=== PATIENT | male | born 1950 | race Caucasian/White ===

== ENCOUNTER 2024-11-07 14:19 | Inpatient (IN) | payer MEDICARE, BC ==
[2024-11-07] MEDS ORDERED: guaiFENesin/Dextromethorphan 100-10 MG/5 ML Soln 5 ML Cup PO PRN (16:31)
[2024-11-07] MEDS ORDERED: Ondansetron 4 MG/2 ML SDV IVPUSH PRN (16:31)
[2024-11-07] MEDS ORDERED: Bisacodyl 10 MG Supp RECTAL PRN (16:31)
[2024-11-07] MEDS ORDERED: Metoprolol Tartrate 5 MG/5 ML SDV IVPUSH PRN (16:31)
[2024-11-07] MEDS ORDERED: Sennosides/Docusate Sodium 50-8.6 MG Tab PO PRN (16:31)
[2024-11-07] MEDS ORDERED: Naloxone 2 MG/2 ML Syringe IVPUSH PRN (16:31)
[2024-11-07] MEDS ORDERED: Polyethylene Glycol 3350 Powder 17 GM Packet PO PRN (16:31)
[2024-11-07] MEDS ORDERED: Magnesium Hydroxide 400 MG/5 ML Susp 30 ML Cup PO PRN (16:31)
[2024-11-07] MEDS ORDERED: hydrALAZINE 20 MG/ML SDV IVPUSH PRN (16:31)
[2024-11-07] MEDS ORDERED: Lactulose Soln 10 GM/15 ML 946 ML Bottle RECTAL PRN (16:31)
[2024-11-07] MEDS: Menthol 10%/Methyl Salicylate 15% 85 GM Tube TOP PRN (18:14)
[2024-11-07] MEDS: Allopurinol 100 MG Tab PO SCH (20:58)
[2024-11-07] MEDS: Cefdinir 250 MG/5 ML Susp 100 ML Bottle PO SCH (20:59)
[2024-11-07] MEDS ORDERED: guaiFENesin 600 MG Tab.ER PO SCH (21:00)
[2024-11-07] MEDS ORDERED: Saccharomyces Boulardii (Probiotic) 250 MG Cap PO SCH (21:00)
[2024-11-08] MEDS: oxyCODONE 5 MG Tab PO PRN (02:02)
[2024-11-08] MEDS: Pantoprazole 40 MG Tab.CR PO SCH (05:13)
[2024-11-08 06:31] LABS: HEMATOCRIT 38.6 % (40.0-54.0); HEMOGLOBIN 12.2 g/dL (14.0-18.0); MEAN CORPUSCULAR HEMOGLOBIN 28.5 pg (27.0-34.0); MEAN CORPUSCULAR HGB CONC 31.6 g/dL (33.0-35.0); MEAN CORPUSCULAR VOLUME 90.2 fL (80-100); PLATELET COUNT,PLT 340 10^3/uL (150-450); RED BLOOD CELL COUNT 4.28 10^6/uL (4.6-6.2)
[2024-11-08 06:48] LABS: ANION GAP 11.9 mEq/L (7-13); CALCIUM 9.4 mg/dL (8.5-10.1); CREATININE 1.27 mg/dL (0.70-1.30); EST CRCL DRUG DOSING (CG) 47.71 mL/min; MAGNESIUM 2.2 mg/dL (1.8-2.4); POTASSIUM,K 3.9 mmol/L (3.5-5.1)
[2024-11-08 06:50] LABS: BASOPHILS PERCENT AUTO 0.3 % (0.0-1.0); EOSINOPHILS PERCENT AUTO 1.1 % (1.0-3.0); LYMPHOCYTES PERCENT AUTO 14.8 % (20.5-50.1); MONOCYTES PERCENT AUTO 12.1 % (2-8); NEUTROPHILS PERCENT AUTO 71.7 % (42.2-75.2)
[2024-11-08 07:36] LABS: LYMPHOCYTES PERCENT MAN 17 % (20-50); MONOCYTES PERCENT MAN 12 % (2-8); PLATELET COUNT ESTIMATE ADEQUATE; SEG NEUTROPHILS PERCENT MAN 71 % (42-75)
[2024-11-08] MEDS: Digoxin 125 MCG Tab PO SCH (09:51)
[2024-11-08] MEDS: Atenolol 50 MG Tab PO SCH (09:52)
[2024-11-08] MEDS: Rivaroxaban 10 MG Tab PO SCH (09:52)
[2024-11-08] MEDS: Furosemide 40 MG Tab PO SCH (09:52)
[2024-11-08] MEDS: Lisinopril 10 MG Tab PO SCH (09:53)
[2024-11-08] MEDS: Acetaminophen 325 MG Tab PO PRN (20:23)
[2024-11-09 06:47] LABS: ANION GAP 11.8 mEq/L (7-13); CALCIUM 9.3 mg/dL (8.5-10.1); CREATININE 1.26 mg/dL (0.70-1.30); EST CRCL DRUG DOSING (CG) 48.09 mL/min; POTASSIUM,K 3.8 mmol/L (3.5-5.1)
[2024-11-10] MEDS: Sodium Chloride 0.9% 10 ML Syringe FLUSH PRN ×2 (09:13→09:14)
[2024-11-13 06:24] LABS: BASOPHILS PERCENT AUTO 0.6 % (0.0-1.0); EOSINOPHILS PERCENT AUTO 0.8 % (1.0-3.0); HEMATOCRIT 35.9 % (40.0-54.0); HEMOGLOBIN 11.7 g/dL (14.0-18.0); LYMPHOCYTES PERCENT AUTO 11.6 % (20.5-50.1); MEAN CORPUSCULAR HEMOGLOBIN 29.5 pg (27.0-34.0); MEAN CORPUSCULAR HGB CONC 32.6 g/dL (33.0-35.0); MEAN CORPUSCULAR VOLUME 90.7 fL (80-100); MONOCYTES PERCENT AUTO 10.3 % (2-8); NEUTROPHILS PERCENT AUTO 76.7 % (42.2-75.2); PLATELET COUNT,PLT 341 10^3/uL (150-450); RED BLOOD CELL COUNT 3.96 10^6/uL (4.6-6.2); WHITE BLOOD CELL COUNT,WBC 10.9 10^3/uL (5.0-10.0)
[2024-11-13 06:42] LABS: ANION GAP 11.4 mEq/L (7-13); CALCIUM 9.8 mg/dL (8.5-10.1); CREATININE 1.51 mg/dL (0.70-1.30); EST CRCL DRUG DOSING (CG) 40.13 mL/min; POTASSIUM,K 4.4 mmol/L (3.5-5.1)
[2024-11-16 06:36] LABS: ANION GAP 14.4 mEq/L (7-13); CALCIUM 9.8 mg/dL (8.5-10.1); CREATININE 1.37 mg/dL (0.70-1.30); EST CRCL DRUG DOSING (CG) 44.23 mL/min; POTASSIUM,K 4.4 mmol/L (3.5-5.1)
[2024-11-17 06:35] LABS: ANION GAP 13.2 mEq/L (7-13); CALCIUM 9.7 mg/dL (8.5-10.1); CREATININE 1.3 mg/dL (0.70-1.30); EST CRCL DRUG DOSING (CG) 46.61 mL/min; POTASSIUM,K 4.2 mmol/L (3.5-5.1)
== END 2024-11-17 16:00 | disposition home health service (06) | DRG 947 ==
LOC: DL.MS 16:33
PROVIDERS: ADMIT Internal Medicine; ATTEND Internal Medicine
DX: R53.1 Weakness (principal); I50.43 Acute on chronic combined systolic (congestive) and diastolic (congestive) heart failure; I42.9 Cardiomyopathy, unspecified; N39.0 Urinary tract infection, site not specified; N17.9 Acute kidney failure, unspecified; I13.0 Hypertensive heart and chronic kidney disease with heart failure and stage 1 through stage 4 chronic kidney disease, or unspecified chronic kidney disease; N18.30 Chronic kidney disease, stage 3 unspecified; J45.909 Unspecified asthma, uncomplicated; I25.10 Atherosclerotic heart disease of native coronary artery without angina pectoris; E66.9 Obesity, unspecified; M19.90 Unspecified osteoarthritis, unspecified site; I48.91 Unspecified atrial fibrillation; E78.5 Hyperlipidemia, unspecified; Z79.899 Other long term (current) drug therapy; Z79.01 Long term (current) use of anticoagulants; Z95.810 Presence of automatic (implantable) cardiac defibrillator; Z68.36 Body mass index [BMI] 36.0-36.9, adult
CPT/HCPCS: 36415; 80048; 83735; 83880; 85025; 97110-GO; 97110-GP; 97116-GP; 97161-GP; 97165-GO; 97530-GO; 97530-GP; 97535-GO; 99306; 99309; 99316; A9270-GY